=== PATIENT | female | born 2000 | race Caucasian/White ===

== ENCOUNTER 2023-07-10 12:15 | Observation (INO) | payer OTHER ==
[~2023-07-10] VITALS: Ht 170.2 cm; Wt 114.8 kg
[2023-07-10 14:30] VITALS: BP 144/68; PULSE 130; RESP 20; TEMP 98.6; O2SAT 98
[2023-07-10] MEDS ORDERED: PRETAB PO (14:30)
== END 2023-07-10 16:22 | disposition home or self-care (01) ==
LOC: MLD 12:15 → UNDOADMOB 12:15 → MLD 14:15
PROVIDERS: ADMIT Obstetrics & Gynecology; ATTEND Obstetrics & Gynecology
DX: O26.893 Other specified pregnancy related conditions, third trimester (principal); R10.9 Unspecified abdominal pain; Z3A.39 39 weeks gestation of pregnancy
CPT/HCPCS: 76815; G0378; Q0092; 81000

== ENCOUNTER 2023-07-13 22:24 | Inpatient (IN) | payer OTHER ==
[~2023-07-13] VITALS: Ht 170.2 cm; Wt 114.8 kg
[~2023-07-13 22:24] MED LIST: PRETAB PO
[2023-07-13] MEDS ORDERED: ONDANSETRON 4 MG/2 ML VIAL IVP PRN (22:50)
[2023-07-13] MEDS ORDERED: METHYLERGONOVINE 0.2 MG/ML AMP IM PRN (22:50)
[2023-07-13] MEDS ORDERED: CARBOPROST 250 MCG/ML AMP IM PRN (22:50)
[2023-07-13] MEDS ORDERED: NALBUPHINE 10 MG/ML AMP IVP PRN (22:50)
[2023-07-13 23:10] LABS: APPEARANCE,URINE CLOUDY (CLEAR); BILIRUBIN,URINE NEGATIVE (NEGATIVE); BLOOD, URINE TRACE-I (NEGATIVE); COLOR,URINE YELLOW (YELLOW); LEUKOCYTE ESTERASE ,URINE 2+ (NEGATIVE); NITRITE, URINE NEGATIVE (NEGATIVE); PH,URINE 7.5 (5.0-9.0); PROTEIN,URINE 2+ (NEGATIVE); UGLUCOSE NEGATIVE (NEGATIVE); UROBILINOGEN,URINE 0.2 EU/dL (0.2 - 1)
[2023-07-13 23:10] LABS: BASOPHILS % (AUTO) 0.3 % (0.0-2.0); EOSINOPHILS # (AUTO) 0.1 K/uL (0-0.4); EOSINOPHILS % (AUTO) 0.5 % (0.0-4.0); HEMATOCRIT 33.7 % (36-48); HEMOGLOBIN 11.4 g/dL (12.0-16.0); LYMPHOCYTES # (AUTO) 2.1 K/uL (2.5-16.5); MEAN CORPUSCULAR HEMOGLOBIN 29 pg (27-31); MEAN CORPUSCULAR HGB CONC 34 g/dL (33-37); MEAN CORPUSCULAR VOLUME 86.8 fL (80-94); MONOCYTES # (AUTO) 1.2 K/uL (0.8-1.0); NEUTROPHILS # (AUTO) 7.8 K/uL (1.8-7.7); NEUTROPHILS % (AUTO) 69.2 % (42.2-75.2); PLATELET COUNT (AUTO) 251 K/uL (140-450); RED BLOOD CELL COUNT(AUTO) 3.88 MIL/uL (4.20-5.40); RED CELL DISTRIBUTION WIDTH 14.2 % (11.6-13.7); WHITE BLOOD COUNT (AUTO) 11.3 K/uL (4.8-10.8)
[2023-07-13 23:18] LABS: RBC,URINE 0-5 /HPF (0-5)
[2023-07-13 23:19] LABS: BACTERIA,URINE >30 (MANY) /HPF (None Seen); MUCUS,URINE 1+ /LPF (None Seen); SQUAMOUS EPITHELIAL CELL,UR 0-3 (FEW) /LPF (0-3 (FEW)); WBC,URINE 20-60 /HPF (0-5)
[2023-07-13 23:30] LABS: INR 0.86 (0.8-1.2); PARTIAL THROMBOPLASTIN TIME 27.5 secs (22-35.6); PROTHROMBIN TIME 9.1 secs (10.8-13.4)
[2023-07-13] MEDS: LACTATED RINGERS 1,000 ML IV SCH (23:35)
[2023-07-13 23:37] LABS: ALBUMIN 2.9 g/dL (3.4-5.0); ANION GAP 14.2 (8-16); CALCIUM 8.7 mg/dL (8.5-10.1); CARBON DIOXIDE 21.3 mmol/L (21-32); CREATININE 0.6 mg/dL (0.6-1.3); POTASSIUM 3.5 mmol/L (3.5-5.1); TOTAL BILIRUBIN 0.3 mg/dL (0.0-1.0)
[2023-07-14 00:26] VITALS: BP 135/74; PULSE 136; TEMP 99.5
[2023-07-14] MEDS ORDERED: ROPIVACAINE 0.2%/NS PREMIX 200 ML EPI ONE ×2 (00:27→11:46)
[2023-07-14] MEDS ORDERED: ROPIVACAINE 0.2%/NS PREMIX 100 ML EPI SCH (00:50)
[2023-07-14] MEDS: LACTATED RINGERS 1,000 ML IV SCH ×4 (01:07→23:51)
[2023-07-14] MEDS ORDERED: OXYTOCIN 20 UNITS/LR PREMIX 1,000 ML IV ONE (02:31)
[2023-07-14] MEDS: OXYTOCIN 20 UNITS in LACTATED RINGERS 1,000 ML IV SCH (02:58)
[2023-07-14] MEDS ORDERED: AMPICILLIN 2,000 MG VIAL ONE (17:44)
[2023-07-14] MEDS ORDERED: AMPICILLIN 2,000 MG in NACL 0.9% 100 ML IV SCH (18:00)
[2023-07-14] MEDS ORDERED: AMPICILLIN 1,000 MG VIAL ONE (21:58)
[2023-07-14] MEDS ORDERED: AMPICILLIN 1,000 MG in NACL 0.9% 50 ML IV SCH (22:00)
[2023-07-14] MEDS ORDERED: GENTAMICIN 80 MG/2 ML VIAL ONE (23:42)
[2023-07-14] MEDS ORDERED: GENTAMICIN 80 MG in DEXTROSE 5% 100 ML IV SCH (23:45)
[2023-07-15] MEDS ORDERED: AMPICILLIN 1,000 MG VIAL ONE (02:03)
[2023-07-15] MEDS: LACTATED RINGERS 1,000 ML IV SCH (05:27)
[2023-07-15] MEDS ORDERED: ceFAZolin 2,000 MG VIAL ONE (05:46)
[2023-07-15] MEDS ORDERED: OXYTOCIN 20 UNITS/LR PREMIX 1,000 ML IV ONE ×2 (06:04→22:19)
[2023-07-15] MEDS ORDERED: diphenhydrAMINE 50 MG/ML VIAL ONE (06:04)
[2023-07-15] MEDS ORDERED: LIDOCAINE MPF 2% 100 MG/5 ML VIAL INJ ONE (06:06)
[2023-07-15] MEDS ORDERED: SODIUM BICARBONATE 8.4% PFS 50 MEQ/50 ML SYR IVP ONE (06:07)
[2023-07-15] MEDS ORDERED: MORPHINE PRES FREE 10 MG/10 ML AMP IV ONE (06:07)
[2023-07-15] MEDS ORDERED: SIMETHICONE 80 MG TAB.CHEW PO PRN (06:25)
[2023-07-15] MEDS ORDERED: oxyCODONE/APAP 5/325 MG 1 TAB TAB PO PRN ×2 (06:25)
[2023-07-15] MEDS ORDERED: fentaNYL citrate 0.05 MG/ML VIAL ONE (06:25)
[2023-07-15] MEDS ORDERED: OXYTOCIN 20 UNITS in LACTATED RINGERS 1,000 ML IV SCH ×2 (06:25→06:40)
[2023-07-15] MEDS ORDERED: METHYLERGONOVINE 0.2 MG/ML AMP IM PRN (06:25)
[2023-07-15] MEDS ORDERED: IBUPROFEN 800 MG TAB PO PRN (06:25)
[2023-07-15] MEDS ORDERED: KETOROLAC 30 MG/ML VIAL IVP PRN ×2 (06:25→06:40)
[2023-07-15] MEDS ORDERED: TEMAZEPAM 15 MG CAP PO PRN (06:25)
[2023-07-15] MEDS ORDERED: ONDANSETRON 4 MG/2 ML VIAL IVP PRN (06:40)
[2023-07-15] MEDS ORDERED: NALOXONE 0.4 MG/ML VIAL IVP PRN (06:40)
[2023-07-15] MEDS ORDERED: diphenhydrAMINE 50 MG/ML VIAL IVP PRN (06:40)
[2023-07-15] MEDS ORDERED: ACETAMINOPHEN 100 ML IV ONE (06:52)
[2023-07-15] MEDS: OXYTOCIN 20 UNITS in LACTATED RINGERS 1,000 ML IV SCH (07:32)
[2023-07-15 15:26] LABS: BASOPHILS % (AUTO) 0.2 % (0.0-2.0); EOSINOPHILS % (AUTO) 0.1 % (0.0-4.0); HEMATOCRIT 31.5 % (36-48); HEMOGLOBIN 10.7 g/dL (12.0-16.0); LYMPHOCYTES # (AUTO) 0.9 K/uL (2.5-16.5); LYMPHOCYTES % (AUTO) 6.9 % (20.5-51.1); MEAN CORPUSCULAR HEMOGLOBIN 30 pg (27-31); MEAN CORPUSCULAR HGB CONC 34 g/dL (33-37); MEAN CORPUSCULAR VOLUME 87.4 fL (80-94); MONOCYTES # (AUTO) 0.5 K/uL (0.8-1.0); NEUTROPHILS # (AUTO) 11.9 K/uL (1.8-7.7); NEUTROPHILS % (AUTO) 88.8 % (42.2-75.2); PLATELET COUNT (AUTO) 207 K/uL (140-450); RED CELL DISTRIBUTION WIDTH 14.3 % (11.6-13.7); WHITE BLOOD COUNT (AUTO) 13.3 K/uL (4.8-10.8)
[2023-07-15] MEDS ORDERED: DOCUSATE SOD/SENNA 50/8.6 MG 1 TAB PO SCH (21:00)
[2023-07-16] MEDS ORDERED: HYDROcodone/APAP 5/325 MG 1 TAB TAB PO PRN ×2 (00:35)
[2023-07-16 05:28] LABS: BASOPHILS % (AUTO) 0.3 % (0.0-2.0); EOSINOPHILS % (AUTO) 0.3 % (0.0-4.0); HEMATOCRIT 29.9 % (36-48); LYMPHOCYTES # (AUTO) 1.1 K/uL (2.5-16.5); LYMPHOCYTES % (AUTO) 7.8 % (20.5-51.1); MEAN CORPUSCULAR HEMOGLOBIN 30 pg (27-31); MEAN CORPUSCULAR HGB CONC 34 g/dL (33-37); MEAN CORPUSCULAR VOLUME 88.2 fL (80-94); MONOCYTES # (AUTO) 0.9 K/uL (0.8-1.0); MONOCYTES % (AUTO) 5.9 % (1.7-9.3); NEUTROPHILS # (AUTO) 12.7 K/uL (1.8-7.7); NEUTROPHILS % (AUTO) 85.7 % (42.2-75.2); PLATELET COUNT (AUTO) 199 K/uL (140-450); RED BLOOD CELL COUNT(AUTO) 3.39 MIL/uL (4.20-5.40); RED CELL DISTRIBUTION WIDTH 14.5 % (11.6-13.7); WHITE BLOOD COUNT (AUTO) 14.8 K/uL (4.8-10.8)
[2023-07-16] MEDS ORDERED: ceFAZolin 2,000 MG VIAL ONE (21:08)
[2023-07-16] MEDS ORDERED: LACTATED RINGERS 1,000 ML IV SCH (21:55)
[2023-07-17] MEDS ORDERED: TEMAZEPAM 15 MG CAP ONE (01:25)
[2023-07-17] MEDS ORDERED: CAMERA MC ONE (02:27)
[2023-07-17] MEDS ORDERED: ceFAZolin 1,000 MG VIAL ONE (06:27)
[2023-07-17] MEDS ORDERED: ceFAZolin 2,000 MG VIAL ONE (06:27)
[2023-07-17] MEDS ORDERED: TEMAZEPAM 15 MG CAP PO SCH (21:00)
== END 2023-07-17 16:40 | disposition home or self-care (01) | DRG 540 ==
LOC: OBSVTOIN 22:24 → MLD 22:24 → MFCC 07-15 07:45
PROVIDERS: ADMIT Obstetrics & Gynecology; ATTEND Obstetrics & Gynecology
PROC: 10D00Z1 Extraction of Products of Conception, Low, Open Approach (ICD-10-PCS; principal; 2023-07-15 06:00)
DX: O62.0 Primary inadequate contractions (principal); R71.0 Precipitous drop in hematocrit; Z20.822 Contact with and (suspected) exposure to COVID-19; Z3A.39 39 weeks gestation of pregnancy; Z37.0 Single live birth
CPT/HCPCS: 36415; 51702; 80053; 81001; 85025; 85610; 85730; 86592; 86886; 86900; 86901; 87086; J0290; J0690; J1200; J1580; J1885; J2001; J2270; J2590; J2795; J3010; J7060; J7120